=== PATIENT | male | born 1980 | race Caucasian/White ===

== ENCOUNTER 2017-12-17 10:40 | Day surgery (SDC) | payer BC ==
[2017-12-16 11:48] VITALS: BMI 33.7
[2017-12-17] MEDS ORDERED: Oxymetazoline HCl 0.05% ( 15 ML ) ONE ×2 (11:44→11:52)
[2017-12-17] MEDS ORDERED: Lidocaine 1% w/Epinephrine 1:200K 30 ML VIAL ONE (11:52)
[2017-12-17] MEDS ORDERED: Bacitracin Zinc Ointment 30 gm TUBE ONE (11:52)
[2017-12-17] MEDS ORDERED: Midazolam HCl 2 mg/2 ml Vial ONE (11:56)
[2017-12-17] MEDS ORDERED: Fentanyl 100 MCG/2 ML VIAL ONE (11:56)
[2017-12-17] MEDS ORDERED: Ondansetron HCl/PF 4 MG/2 ML Vial ONE (12:52)
[2017-12-17] MEDS ORDERED: Dexamethasone 20 MG/5 ML VIAL ONE (12:52)
[2017-12-17] MEDS ORDERED: PROPOFOL 200 MG/20 ML VIAL ONE (12:52)
[2017-12-17] MEDS ORDERED: Glycopyrrolate 0.2 MG/ML 5 ML SYRINGE ONE (12:52)
[2017-12-17] MEDS ORDERED: Lidocaine 1% PF 5 ML VIAL ONE (12:52)
--- NOTE | 2017-12-17 13:15 | OP ---
PREOPERATIVE DIAGNOSES: Recurrent epistaxis, profound septal deformity, hypertrophic inferior turbin ates. POSTOPERATIVE DIAGNOSES: Recurrent epistaxis, profound septal deformity, hypertrophic inferior turbi nates. PROCEDURES PERFORMED: 1. Septoplasty. 2. Bilateral nasal endoscopy with control of nasal hemorrhage. 3. Bilateral nasal endoscopy with submucosal resection. PROCEDURE IN DETAIL: After consent was obtained, the patient was identified, brought to the operatin g room, and placed on the operating room table in the supine position. Consent was obtained, notifyi ng the patient of the possibility of additional infections, bleeding, brain injury, and eye/orbital i njury. The patient was placed on the operating room table, and general endotracheal anesthesia and intravenous access was obtained. The patient was then positioned, prepped and draped for endoscopic sinus surgery. Nasal preparation included trimming nasal vestibular hairs and spraying in topical Af rin. We then placed Afrin topical solution on nasal pledgets and strategically located them intranas ally. The perinasal mucosa was injected with 1% lidocaine with 1:100,000 epinephrine in the submucop erichondrial plane of the septum, lateral nasal wall, and anterior to the uncinate. The patient was then prepped and draped in a sterile fashion and positioned for endoscopic sinus surgery. (Septoplasty) After local anesthesia was infiltrated into the submucoperichondrial plane, a standard [place] incisi on was made with a #15 blade down to the level of the septal cartilage. The caudal elevator was used to elevate the mucoperichondrium from the underlying cartilage. We then proceeded beyond the bony c artilaginous junction and elevated the bony periosteum as well. Great attention was paid to the spur to prevent rent formation in the septal flap. A transcartilaginous incision was then made, while pre serving an adequate dorsal and caudal cartilaginous strut for tip support. The deformed cartilage wa s removed and disarticulated from the bony cartilaginous junction and maxillary crest. This was plac ed in saline and would later be crushed and returned to the mucoperichondrial envelope. We then elev ated the contralateral periosteum from the bony cartilaginous region and removed the deformed portion s of the bone and bony spurs. The cartilage was then crushed and placed back into the mucoperichondr ial envelope and the mucosa was re-approximated with a quilting stitch composed of rapidly absorbent gut suture. The Myron incision was also closed with interrupted gut suture. At the completion of the case, Spencer splints were placed and suture secured to the caudal septum. (Endoscopic Sinus Surgery) With the 0-degree endoscope, the patient underwent systematic nasal endoscopy. There were no suspici ous internasal masses or lesions identified. We then focused our attention to the osteomeatal comple x region under the middle turbinate. (Maxillary Antrostomy) The uncinate was then identified and the extent of the uncinate was appreciated by out-fracturing the uncinate with the ball-tip probe. We then used the sickle blade to disarticulate the uncinate from the lateral nasal wall. This was then removed with straight biting and upbiting punches with the rem aining shrouds of mucosa and bony septum removed with the micro-debrider. The natural os of the maxi llary sinus was then identified and enlarged with the maxillary punches and back biting forceps. At this point, we then turned our attention to the contralateral side and proceeded with endoscopic s inus surgery. At the completion of the case, [place] keel splints were placed in the ethmoid cavities after the ethmoi dectomy. There were no complications. The patient tolerated the procedure well and was discharged t o the recovery room in stable condition prior to return to the preoperative Day Stay with [facility]. Prescriptions for pain medication and antibiotics were provided. The patient received intramuscular Depo-Medrol during the case.
[2017-12-17] MEDS ORDERED: Albuterol Sulfate 1.25 MG/3 ML NEB ONE (13:54)
[2017-12-17] MEDS ORDERED: traMADol HCl 50 MG TAB ONE (14:55)
== END 2017-12-17 15:30 | disposition home or self-care (01) ==
LOC: SDC 10:40
PROVIDERS: ATTEND Specialist
PROC: 0W3Q8ZZ Control Bleeding in Respiratory Tract, Via Natural or Artificial Opening Endoscopic (ICD-10-PCS; principal; 2017-12-17)
PROC: 09BM0ZZ Excision of Nasal Septum, Open Approach (ICD-10-PCS; principal; 2017-12-17)
DX: J34.2 Deviated nasal septum (principal); J34.3 Hypertrophy of nasal turbinates; R04.0 Epistaxis
CPT/HCPCS: J0131; J2250; J3010